=== PATIENT | male | born 1985 | race Two or more races ===

== ENCOUNTER 2020-12-24 19:36 | Emergency (ER) | payer OTHER ==
[~2020-12-24] VITALS: Ht 172.7 cm; Wt 75.9 kg
[2020-12-24] MEDS ORDERED: fentaNYL PF VIAL 100 MCG/2 ML VIAL ONE (20:10)
[2020-12-24] MEDS ORDERED: fentaNYL PF VIAL 100 MCG/2 ML VIAL IV ONE (20:30)
--- NOTE | 2020-12-24 20:48 | PHYS DOC ---
Past Medical History Additional Past Medical Histor: MS Past Surgical History: No Surgical History Smoking Status: Never Smoker Alcohol Use: Occasionally Drug Use: Marijuana General Adult EDM: Chief Complaint: UPPER EXTREMITY INJURY HPI: HPI: Patient is a 35 year old male presents with left elbow pain s/p fall ~3 hours ago. Reports he was in a tree and fell 3-4 feet onto the elbow. Also complains of left shoulder and wrist pain. Reports associated numbness over the left forearm and hand. Also notes several abrasions and swelling over the left elbow. Last tetanus unknown. Denies head injury or LOC. Denies back pain or neck pain. Review of Systems: Review of Systems: Constitutional: Denies fever or chills Eyes: Denies redness or eye pain HENT: Denies nasal congestion or sore throat Respiratory: Denies cough or shortness of breath Cardiovascular: Denies chest pain or palpitations GI: Denies abdominal pain, nausea, or vomiting : Denies dysuria or hematuria Musculoskeletal: Reports left shoulder, elbow, and wrist pain. Denies back pain or neck pain Integument: Reports abrasions and swelling over the left elbow. Denies rash or skin lesions Neurologic: Reports numbness in left forearm and hand. Denies headache or focal weakness Complete systems were reviewed and found to be within normal limits, except as documented in this note. Heart Score: C/O Chest Pain: N/A Current Medications: Current Medications Medications (Trade) Dose Ordered Sig/Brennon Start Time Stop Time Status Last Admin Dose Admin Fentanyl Citrate (Fentanyl 2ml Vial) 50 mcg 1X ONCE 12/24/20 20:30 12/24/20 20:31 DC 12/24/20 20:27 50 MCG Allergies: Allergies: Allergies Coded Allergies Type Severity Reaction Last Updated Verified No Known Drug Allergies 12/24/20 No Physical Exam: PE: Constitutional: Well developed, well nourished, no acute distress, non-toxic appearance HENT: Normocephalic, atraumatic Eyes: PERRL, EOMI, conjunctiva normal, no discharge Neck: Normal range of motion, no tenderness, supple Lungs & Thorax: No respiratory distress, equal chest rise and fall Abdomen: Soft, no tenderness Skin: Warm, dry, no erythema, no rash Back: No tenderness, no CVA tenderness Extremities: The left elbow is flexed with tenderness noted throughout. There is a discrete area of swelling over the lateral elbow as well. ROM limited secondary to pain. 2+ radial pulses bilaterally. Able to move all digits. [employer] strength intact. Remaining extremities nontender with full ROM. Neurologic: Alert and oriented X 3, normal motor function, no focal deficits noted. Diminished sensation over the left posterolateral forearm and dorsal hand. Psychologic: Affect normal, judgment normal Current Patient Data: Vital Signs: Vital Signs Date Time Temp Pulse Resp B/P (MAP) Pulse Ox O2 Delivery O2 Flow Rate FiO2 12/24/20 20:27 20 98 Room Air 12/24/20 19:51 98.2 63 149/81 98.2 EKG: EKG: [] Radiology/Procedures: Radiology/Procedures: Exam: Left hip 2 views with pelvis INDICATION: Pain status post fall TECHNIQUE: Frontal view of pelvis with frontal and frog-leg lateral views the left hip Comparisons: None FINDINGS: Bone mineralization is normal. No acute or healed fractures. Soft tissues are unremarkable. Joint spaces are well-maintained. IMPRESSION: No acute osseous abnormality Electronically signed by: Lam Washington MD (12/24/2020 9:44 PM) [facility] Exam: Left elbow 3 views INDICATION: Pain status post fall TECHNIQUE: Frontal, lateral and oblique views of the left elbow Comparisons: None FINDINGS: Severely comminuted fracture involving the olecranon and proximal ulna. There is diffuse overlying soft tissue swelling. Elevation of the anterior humeral fat pad. Joint spaces are well-maintained. IMPRESSION: Severely comminuted fracture involving the olecranon and proximal ulna Electronically signed by: Lam Washington MD (12/24/2020 9:45 PM) [facility] Exam: Left wrist 2 views INDICATION: Pain, status post fall TECHNIQUE: Frontal and lateral views the left wrist Comparisons: None FINDINGS: Bone mineralization is normal. No acute or healed fractures. Soft tissues are unremarkable. Joint spaces are well-maintained IMPRESSION: No acute osseous abnormality Electronically signed by: Lam Washington MD (12/24/2020 9:44 PM) [facility] Exam: Left shoulder 2 views INDICATION: Pain, status post fall TECHNIQUE: Frontal view of the left shoulder and transscapular Y views Comparisons: None FINDINGS: Bone mineralization is normal. No acute or healed fractures. Soft tissues are unremarkable. Joint spaces are well-maintained. IMPRESSION: No acute osseous abnormality. Electronically signed by: Lam Washington MD (12/24/2020 9:43 PM) [facility] Ex[facility]: CT head and cervical spine INDICATION: Pain, status post fall TECHNIQUE: Sequential axial images through the head and cervical spine were obtained without the administration of IV contrast. Exposure: One or more of the following in the visualized dose reduction techniques were utilized for this examination: 1. Automated exposure control 2. Adjustment of the MA and/or KV according to patient size 3. Use of iterative of reconstructive technique Comparisons: None FINDINGS: Head: No focal parenchymal lesion or hemorrhage is identified. There is no midline shift or sulcal effacement. No acute vascular territory infarction is identified. Simmons-white distinction is preserved. The ventricular system is within normal limits without compression hydrocephalus. The basal cisterns are well maintained. The visualized portions of the paranasal sinuses and mastoid air cells are well- pneumatized. No acute fractures. Cervical spine: Straightening of cervical spine which may positional. Vertebral body heights are well-maintained. No significant spondylotic change in the cervical spine. Visualized paraspinal soft tissues are unremarkable. No significant spondylotic change in the cervical spine. IMPRESSION: 1. No acute intracranial abnormality. 2. Negative CT C-spine for acute traumatic injury Electronically signed by: Lam Washington MD (12/24/2020 9:58 PM) [facility] Exam: Chest one view INDICATION: Pain status post fall TECHNIQUE: Frontal view of the chest Comparisons: None FINDINGS: The cardiomediastinal silhouette and pulmonary vessels are within normal limits. The lung and pleural spaces are clear. IMPRESSION: No acute cardiopulmonary process. Electronically signed by: Lam Washington MD (12/24/2020 9:46 PM) [facility] Course & Med Decision Making: Course & Med Decision Making 35 year old male presents s/p mechanical fall with left elbow pain. Administered fentanyl and morphine for pain. Imaging significant for a severe comminuted fracture of the left olecrenon. Last NPO was 1800. Discussed with Dr. Menezes (orthopedics) who reviewed imaging and recommends splinting with outpatient follow-up. Left elbow abrasions cleaned and dressed. Left UE stabilized in a posterior long arm splint. Patient stable for discharge with outpatient follow-up with PCP and orthopedics. Discussed findings and plan with patient, who acknowledges understanding and agreement. Sury Disclaimer: Sury Disclaimer: This electronic medical record was generated, in whole or in part, using a voice recognition dictation system. Departure Departure Impression: Primary Impression: Fall from tree Qualified Codes: W14.XXXA - Fall from tree, initial encounter Additional Impressions: Elbow abrasion Qualified Codes: S50.312A - Abrasion of left elbow, initial encounter Closed olecranon fracture Qualified Codes: S52.022A - Displaced fracture of olecranon process without intraarticular extension of left ulna, initial encounter for closed fracture Disposition: HOME / SELF CARE / HOMELESS Condition: STABLE Referrals: NO PCP (PCP) KATY MENEZES Jr. DO Patient Instructions: Splint Care, [id number], Ulnar Fracture Additional Instructions: You have a significant fracture of your elbow that will require surgical repair. Please call referred Orthopedic surgeon Saturday AM to make an appointment to be seen in the next week. Please tell the office that you were seen in the ED today and that the ED doctor discussed your case with Dr. Menezes. Dr. Menezes also looked at your XRs and wants to seen you in 1 week. Scripts Oxycodone/Apap 5-325 (PERCOCET 5-325 MG TABLET ) 1 Each Tablet 0.5-1 TAB PO PRN Q6HRS PRN for PAIN, #20 TAB 0 Refills Prov: JOSS STONE DO 12/25/20 JOSS STONE DO Dec 24, 2020 20:48
[2020-12-24] MEDS ORDERED: MORPHINE SULFATE 4 MG/ML INJ. IVP ONE ×2 (21:15→22:30)
--- NOTE | 2020-12-24 21:46 | RAD ---
Exam: Left shoulder 2 views INDICATION: Pain, status post fall TECHNIQUE: Frontal view of the left shoulder and transscapular Y views Comparisons: None FINDINGS: Bone mineralization is normal. No acute or healed fractures. Soft tissues are unremarkable. Joint spa danielle are well-maintained. IMPRESSION: No acute osseous abnormality. Electronically signed by: Lam Washington MD (12/24/2020 9:43 PM) [facility]
--- NOTE | 2020-12-24 21:46 | RAD ---
Exam: Left wrist 2 views INDICATION: Pain, status post fall TECHNIQUE: Frontal and lateral views the left wrist Comparisons: None FINDINGS: Bone mineralization is normal. No acute or healed fractures. Soft tissues are unremarkable. Joint spa danielle are well-maintained IMPRESSION: No acute osseous abnormality Electronically signed by: Lam Washington MD (12/24/2020 9:44 PM) [facility]
--- NOTE | 2020-12-24 21:47 | RAD ---
Exam: Left hip 2 views with pelvis INDICATION: Pain status post fall TECHNIQUE: Frontal view of pelvis with frontal and frog-leg lateral views the left hip Comparisons: None FINDINGS: Bone mineralization is normal. No acute or healed fractures. Soft tissues are unremarkable. Joint spa danielle are well-maintained. IMPRESSION: No acute osseous abnormality Electronically signed by: Lam Washington MD (12/24/2020 9:44 PM) [facility]
--- NOTE | 2020-12-24 21:48 | RAD ---
Exam: Left elbow 3 views INDICATION: Pain status post fall TECHNIQUE: Frontal, lateral and oblique views of the left elbow Comparisons: None FINDINGS: Severely comminuted fracture involving the olecranon and proximal ulna. There is diffuse overlying so ft tissue swelling. Elevation of the anterior humeral fat pad. Joint spaces are well-maintained. IMPRESSION: Severely comminuted fracture involving the olecranon and proximal ulna Electronically signed by: Lam Washington MD (12/24/2020 9:45 PM) [facility]
--- NOTE | 2020-12-24 21:48 | RAD ---
Exam: Chest one view INDICATION: Pain status post fall TECHNIQUE: Frontal view of the chest Comparisons: None FINDINGS: The cardiomediastinal silhouette and pulmonary vessels are within normal limits. The lung and pleural spaces are clear. IMPRESSION: No acute cardiopulmonary process. Electronically signed by: Lam Washington MD (12/24/2020 9:46 PM) [facility]
--- NOTE | 2020-12-24 22:00 | RAD ---
Exam: CT head and cervical spine INDICATION: Pain, status post fall TECHNIQUE: Sequential axial images through the head and cervical spine were obtained without the admi nistration of IV contrast. Exposure: One or more of the following in the visualized dose reduction techniques were utilized for this examination: 1. Automated exposure control 2. Adjustment of the MA and/or KV according to patient size 3. Use of iterative of reconstructive technique Comparisons: None FINDINGS: Head: No focal parenchymal lesion or hemorrhage is identified. There is no midline shift or sulcal effaceme nt. No acute vascular territory infarction is identified. Simmons-white distinction is preserved. The ventricular system is within normal limits without compression hydrocephalus. The basal cisterns are well maintained. The visualized portions of the paranasal sinuses and mastoid air cells are well-pneumatized. No acute fractures. Cervical spine: Straightening of cervical spine which may positional. Vertebral body heights are well-maintained. No significant spondylotic change in the cervical spine. Visualized paraspinal soft tissues are unremarkable. No significant spondylotic change in the cervical spine. IMPRESSION: 1. No acute intracranial abnormality. 2. Negative CT C-spine for acute traumatic injury Electronically signed by: Lam Washington MD (12/24/2020 9:58 PM) [facility]
[2020-12-24] MEDS ORDERED: DIPH,PERTUSS(ACELL),TET VAC/PF 0.5 ML SYRINGE. VAX IM ONE (22:30)
[2020-12-24] MEDS ORDERED: NEOMY/BACITR/POLYMYXIN OINT PACKET. TP ONE (22:30)
[2020-12-24 23:03] LABS: BASO % 1 % (0-3); EOS # 0.1 x10^3/uL (0.0-0.7); EOS % 2 % (0-3); HEMATOCRIT 41.3 % (39.0-53.0); HEMOGLOBIN 14.3 g/dL (13.0-17.5); LYMPH # 2.6 x10^3/uL (1.0-4.8); LYMPH % 37 % (24-48); MEAN CORPUSCULAR HEMOGLOBIN 31 pg (25-35); MEAN CORPUSCULAR HGB CONC 35 g/dL (31-37); MEAN CORPUSCULAR VOLUME 91 fL (79-100); MONO # 0.5 x10^3/uL (0.0-1.1); MONO % 7 % (0-9); NEUT # 3.9 x10^3/uL (1.8-7.7); NEUT % 55 % (31-73); PLATELET COUNT 255 x10^3/uL (140-400); RED BLOOD COUNT 4.56 x10^6/uL (4.30-5.70); RED CELL DISTRIBUTION WIDTH 12.8 % (11.5-14.5); WHITE BLOOD COUNT 7.2 x10^3/uL (4.0-11.0)
[2020-12-24 23:22] LABS: CALCIUM 8.8 mg/dL (8.5-10.1); CREATININE 1.1 mg/dL (0.7-1.3); GFR 75.7; POTASSIUM 3.8 mmol/L (3.5-5.1)
[2020-12-24 23:28] LABS: ALBUMIN/GLOBULIN RATIO 1.1 (1.0-1.7); MAGNESIUM 2.2 mg/dL (1.8-2.4); TOTAL BILIRUBIN 0.3 mg/dL (0.2-1.0); TOTAL PROTEIN 7.5 g/dL (6.4-8.2)
[2020-12-25] MEDS ORDERED: oxyCODONE/APAP 5/325 1 TAB TABLET PO ONE (00:30)
[2020-12-25] MEDS ORDERED: KETOROLAC 15 MG/ML VIAL. IVP ONE (00:30)
[2020-12-25] MEDS ORDERED: OXYC1TAB15 PO (00:50)
[2020-12-25 00:57] VITALS: BP 148/81
--- NOTE | 2020-12-26 10:44 | NUR ---
IP: Informed pt of negative covid test. Pt verbalized understanding.
== END 2020-12-25 03:49 | disposition home or self-care (01) ==
LOC: ER 19:36
DX: S52.022A Displaced fracture of olecranon process without intraarticular extension of left ulna, initial encounter for closed fracture (principal); Z20.822 Contact with and (suspected) exposure to COVID-19; S50.312A Abrasion of left elbow, initial encounter; M25.532 Pain in left wrist; W14.XXXA Fall from tree, initial encounter; Y93.89 Activity, other specified; Y92.89 Other specified places as the place of occurrence of the external cause; Y99.8 Other external cause status
CPT/HCPCS: 29105; 36415; 70450; 71045; 72125; 73030; 73070; 73100; 73502; 80053; 83735; 85025; 87426; 90471; 90715; 96374; 96375; 96376; 99285; A4565; J1885; J2270; J3010; U0003; U0005